=== PATIENT | female | born 1930 | race Caucasian/White ===

== ENCOUNTER 2019-02-24 12:41 | Emergency (ER) | payer OTHER ==
[2019-02-24] MEDS ORDERED: NA CHLORIDE 0.9% 1,000 ML ONE (13:13)
--- NOTE | 2019-02-24 13:20 | RAD REPORT ---
EXAM DESCRIPTION: CT - Head Brain Wo Cont - 02/24/2019 1:13 pm CLINICAL HISTORY: CONFUSED Headache, drowsiness COMPARISON: No comparisons TECHNIQUE: All CT scans are performed using dose optimization technique as appropriate and may inclu de automated exposure control or mA/KV adjustment according to patient size. FINDINGS: No intracranial hemorrhage, hydrocephalus or extra-axial fluid collection.Mild generalized brain atrophy is present with mild periventricular and deep white matter chronic microvascular ische radha changes.No areas of brain edema or evidence of midline shift. The paranasal sinuses and mastoids are clear. The calvarium is intact. IMPRESSION: No acute intracranial abnormality.
--- NOTE | 2019-02-24 13:35 | RAD REPORT ---
EXAM DESCRIPTION: US - Extremity Venous Uni Ltd - 02/24/2019 1:27 pm CLINICAL HISTORY: SWELLING Leg swelling and edema. COMPARISON: Extrem Venous W Compress Brandin dated 12/21/2016 FINDINGS: Left lower extremity venous system was interrogated with Doppler technique. Normal flow, c ompressibility and augmentation was noted. There is no DVT present. IMPRESSION: No evidence of left lower extremity deep venous thrombosis.
--- NOTE | 2019-02-24 13:43 | RAD REPORT ---
EXAM DESCRIPTION: RAD - Chest Single View - 02/24/2019 1:37 pm CLINICAL HISTORY: CONGESTION Chest pain. COMPARISON: Chest Pa And Lat (2 Views) dated 08/01/2018; CHEST PA AND LAT 2 VIEW dated 07/29/2010; SANJANA ST PA AND LAT 2 VIEW dated 08/05/2008 FINDINGS: Portable technique limits examination quality. Benign bilateral calcified granulomata seen. The lungs are otherwise clear. The heart is mildly enlar ged in size. Moderate hiatal hernia.Aortic atherosclerosis.
[2019-02-24 14:01] LABS: Absolute Lymphocytes (CBC) 1.5 K/uL (0.7-4.9); Basophils % 0.6 % (0-1.3); Lymphocytes % 17.1 % (15.3-44.8); MPV 9.2 fL (7.6-11.3); RBC Red Blood Cell Count 4.75 M/uL (3.86-4.86)
[2019-02-24 14:24] LABS: ALT/SGPT 23 U/L (12-78); AST/SGOT 21 U/L (15-37); Albumin 3.5 g/dL (3.4-5.0); Alkaline Phosphatase 90 U/L (45-117); BUN Blood Urea Nitrogen 18 mg/dL (7-18); Bicarbonate 26 mmol/L (21-32); Bilirubin Direct 0.2 mg/dL (0-0.2); Bilirubin Total 0.6 mg/dL (0.2-1.0); Glucose Level 110 mg/dL (74-106); Magnesium 2.1 mg/dL (1.8-2.4); NT PRO-BNP 437 pg/mL (<450); Potassium 3.9 mmol/L (3.5-5.1); Protein, Total 7.1 g/dL (6.4-8.2); Sodium Level 138 mmol/L (136-145); Troponin (Emerg Dept Use Only) < 0.02 ng/mL (0.0-0.045)
[2019-02-24] MEDS ORDERED: CEFTRIAXONE/SWI 1gm 1 GM/10 ML SYR ONE (15:50)
--- NOTE | 2019-02-24 15:54 | ER ---
Nurse's Notes [facility] Name: Pau Mims Age: 88 yrs Sex: Female : 1930 Arrival Date: 02/24/2019 Time: 12:44 Bed 7 Private MD: Jay Van C Diagnosis: Cystitis, unspecified without hematuria Presentation: 02/24 12:48 Presenting complaint: Sent by Dr. Van for leg swelling and generalized weakness x 1 hb week. Transition of care: patient was not received from another setting of care. Onset of symptoms was February 17, 2019. Risk Assessment: Do you want to hurt yourself or someone else? Patient reports no desire to harm self or others. Care prior to arrival: None. 12:48 Method Of Arrival: Ambulatory hb 12:48 Acuity: BRANDON 3 hb 13:00 Initial Sepsis Screen: Does the patient meet any 2 criteria? No. Patient's initial jl7 sepsis screen is negative. Does the patient have a suspected source of infection? No. Patient's initial sepsis screen is negative. Historical: - Allergies: 12:50 Sulfa (Sulfonamide Antibiotics); hb - Home Meds: 14:35 losartan 50 mg oral tab 1 tab 2 times per day [Active]; metoprolol tartrate 25 mg Oral jl7 tab 1 tab once daily [Active]; pantoprazole 40 mg oral TbEC 1 tab once daily [Active]; - PMHx: 14:35 Hypertension; jl7 - PSHx: 14:35 Hysterectomy; jl7 - Immunization history:: Adult Immunizations up to date. - Social history:: Smoking status: Patient/guardian denies using tobacco, Patient/guardian denies using alcohol, street drugs, The patient lives with family. - Ebola Screening: : No symptoms or risks identified at this time. - Family history:: not pertinent. Screenin:31 Abuse screen: Denies threats or abuse. Denies injuries from another. Nutritional jl7 screening: No deficits noted. Tuberculosis screening: No symptoms or risk factors identified. Fall Risk IV access (20 points). Total Frye Fall Scale indicates No Risk (0-24 pts). Assessment: 13:30 General: Appears in no apparent distress. uncomfortable, Behavior is calm, cooperative. jl7 Pain: Denies pain. Neuro: Level of Consciousness is awake, alert, obeys commands. Cardiovascular: Denies chest pain, Patient's skin is warm and dry. Edema is 3+ to left ankle, left foot, left toes, right ankle, right foot and right toes. Respiratory: Airway is patent Respiratory effort is even, unlabored, Respiratory pattern is regular, symmetrical, Denies shortness of breath. GI: No signs and/or symptoms were reported involving the gastrointestinal system. : No signs and/or symptoms were reported regarding the genitourinary system. Derm: Skin is pink, warm \T\ dry. 14:31 Reassessment: Patient appears in no apparent distress at this time. No changes from jl7 previously documented assessment. Patient and/or family updated on plan of care and expected duration. Pain level reassessed. Patient is alert, oriented x 3, equal unlabored respirations, skin warm/dry/pink. Vital Signs: 12:50 BP 205 / 95; Pulse 70; Resp 16; Temp 97.1; Pulse Ox 100% on R/A; Weight 62.14 kg; hb Height 5 ft. 1 in. (154.94 cm); Pain 0/10; 14:28 BP 156 / 94; Pulse 67; Resp 20 S; Pulse Ox 96% on R/A; Pain 0/10; jl7 15:10 BP 190 / 84; Pulse 62; Resp 16 S; Pulse Ox 96% on R/A; jl7 12:50 Body Mass Index 25.89 (62.14 kg, 154.94 cm) hb ED Course: 12:44 Patient arrived in ED. mr 12:45 Jay Van MD is Private Physician. mr 12:50 Triage completed. hb 12:50 Arm band placed on. hb 12:58 Emily Rios MD is Attending Physician. ma2 12:58 Anita Gusman RN is Primary Nurse. jl7 13:56 Initial lab(s) drawn, by ia, sent to lab. Inserted saline lock: 20 gauge in right ms antecubital area, using aseptic technique. Blood collected. 14:31 Patient has correct armband on for positive identification. Placed in gown. Bed in low jl7 position. Call light in reach. Side rails up X2. cardiac monitor technician on. Pulse ox on. NIBP on. Warm blanket given. 14:35 EKG done, by technical project lead. reviewed by Emily Rios MD. at1 15:09 Straight cath inserted, using sterile technique, 16 Fr. Specimen obtained. Returned jl7 cloudy urine. Patient tolerated well. 16:20 No provider procedures requiring assistance completed. IV discontinued, intact, jl7 bleeding controlled, No redness/swelling at site. Pressure dressing applied. Administered Medications: 15:50 Drug: Rocephin 1 grams Route: IV; Rate: calculated rate; Site: right antecubital; jl7 15:53 Follow up: Response: No adverse reaction; IV Status: Completed infusion jl7 15:58 Not Given (Patient Refused): NS 0.9% 1000 ml IV at 1 bolus Per protocol; 1000 mL bolus jl7 Outcome: 15:53 Discharge ordered by . ma2 16:20 Discharged to home ambulatory, with family. jl7 16:20 Condition: stable 16:20 Discharge instructions given to patient, family, Instructed on discharge instructions, follow up and referral plans. medication usage, Demonstrated understanding of instructions, follow-up care, medications, Prescriptions given X 1. 16:29 Patient left the ED. jl7 Addendum: 02/26/2019 08:06 Addendum: Culture Results: Positive urine culture. No further action required. Bacteria h b sensitive to prescribed antibiotic. Signatures: Natasha Cabrera mr Manuel, Melanie ms Khoi, Sparkle, adjunct philosophy faculty EKG Tat1 Ethel Pina, RN RN Anita Crespo RN RN jl7 Emily Rios MD MD ma2
--- NOTE | 2019-02-24 15:54 | EDPHYS ---
Physician Documentation [facility] Name: Pau Mims Age: 88 yrs Sex: Female : 1930 Arrival Date: 02/24/2019 Time: 12:44 Bed 7 Private MD: Jay House C ED Physician Emily Rios HPI: 02/24 15:50 This 88 yrs old Female presents to ER via Ambulatory with complaints of Leg ma2 Swelling. 15:50 Onset: The symptoms/episode began/occurred gradually, 1 week(s) ago. Severity of ma2 symptoms: At their worst the symptoms were mild in the emergency department the symptoms are unchanged. The patient has not experienced similar symptoms in the past. Historical: - Allergies: 12:50 Sulfa (Sulfonamide Antibiotics); hb - Home Meds: 14:35 losartan 50 mg oral tab 1 tab 2 times per day [Active]; metoprolol tartrate 25 mg Oral jl7 tab 1 tab once daily [Active]; pantoprazole 40 mg oral TbEC 1 tab once daily [Active]; - PMHx: 14:35 Hypertension; jl7 - PSHx: 14:35 Hysterectomy; jl7 - Immunization history:: Adult Immunizations up to date. - Social history:: Smoking status: Patient/guardian denies using tobacco, Patient/guardian denies using alcohol, street drugs, The patient lives with family. - Ebola Screening: : No symptoms or risks identified at this time. - Family history:: not pertinent. ROS: 15:50 Constitutional: Negative for fever, chills, and weight loss. ma2 15:50 All other systems are negative. Exam: 15:50 Constitutional: This is a well developed, well nourished patient who is awake, alert, ma2 and in no acute distress. Head/Face: Normocephalic, atraumatic. Eyes: Pupils equal round and reactive to light, extra-ocular motions intact. Lids and lashes normal. Conjunctiva and sclera are non-icteric and not injected. Cornea within normal limits. Periorbital areas with no swelling, redness, or edema. Chest/axilla: Normal chest wall appearance and motion. Nontender with no deformity. No lesions are appreciated. Cardiovascular: Regular rate and rhythm with a normal S1 and S2. No gallops, murmurs, or rubs. Normal PMI, no JVD. No pulse deficits. Skin: Warm, dry with normal turgor. Normal color with no rashes, no lesions, and no evidence of cellulitis. Neuro: Awake and alert, GCS 15, oriented to person, place, time, and situation. Cranial nerves II-XII grossly intact. Motor strength 5/5 in all extremities. Sensory grossly intact. Cerebellar exam normal. Normal gait. Vital Signs: 12:50 BP 205 / 95; Pulse 70; Resp 16; Temp 97.1; Pulse Ox 100% on R/A; Weight 62.14 kg; hb Height 5 ft. 1 in. (154.94 cm); Pain 0/10; 14:28 BP 156 / 94; Pulse 67; Resp 20 S; Pulse Ox 96% on R/A; Pain 0/10; jl7 15:10 BP 190 / 84; Pulse 62; Resp 16 S; Pulse Ox 96% on R/A; jl7 12:50 Body Mass Index 25.89 (62.14 kg, 154.94 cm) hb MDM: 12:58 Patient medically screened. ma2 15:50 Differential Diagnosis dvt, SDH, uti. Data reviewed: vital signs, nurses notes. ma2 Counseling: I had a detailed discussion with the patient and/or guardian regarding: the historical points, exam findings, and any diagnostic results supporting the discharge/admit diagnosis, the presence of at least one elevated blood pressure reading (>120/80) during this emergency department visit, the need for outpatient follow up. ED course: discussed with dr. ohuse who recommends offering both options to patient either observation or outpatient management, patient want to go home. .. 02/24 13:01 Order name: Basic Metabolic Panel [facility] 02/24 13:01 Order name: CBC with Diff [facility] 02/24 13:01 Order name: LFT's [facility] 02/24 13:01 Order name: Magnesium [facility] 02/24 13:01 Order name: NT PRO-BNP [facility] 02/24 13:01 Order name: PT-INR [facility] 02/24 13:01 Order name: Troponin (emerg Dept Use Only) [facility] 02/24 14:03 Order name: CBC with Automated Diff; Complete Time: 14:09 EDMS 02/24 14:04 Order name: Protime (+INR); Complete Time: 14:09 EDMS 02/24 14:25 Order name: Basic Metabolic Panel; Complete Time: 14:29 EDMS 02/24 14:25 Order name: Liver (Hepatic) Function; Complete Time: 14:29 EDMS 02/24 14:25 Order name: Troponin (Emerg Dept Use Only); Complete Time: 14:29 EDMS 02/24 14:25 Order name: NT PRO-BNP; Complete Time: 14:29 EDMS 02/24 14:25 Order name: Magnesium; Complete Time: 14:29 EDMS 02/24 13:01 Order name: XRAY Chest (1 view) [facility] 02/24 13:01 Order name: EKG; Complete Time: 13:03 [facility] 02/24 13:01 Order name: Cardiac monitoring; Complete Time: 13:55 ar2 02/24 13:01 Order name: EKG - Nurse/Tech; Complete Time: 13:56 [facility] 02/24 13:01 Order name: IV Saline Lock; Complete Time: 13:56 [facility] 02/24 13:01 Order name: Labs collected and sent; Complete Time: 13:56 [facility] 02/24 13:01 Order name: O2 Per Protocol; Complete Time: 13:55 ar2 02/24 13:01 Order name: CT Head Brain wo Cont [facility] 02/24 13:01 Order name: Extremity Venous Uni Ltd US [facility] 02/24 13:26 Order name: CT; Complete Time: 14:09 [facility] 02/24 13:43 Order name: US; Complete Time: 14:09 [facility] 02/24 13:48 Order name: RAD; Complete Time: 14:09 [facility] 02/24 15:12 Order name: Urine Culture [facility] 02/24 15:13 Order name: Urine Dipstick--Ancillary (enter results) bd 02/24 13:01 Order name: O2 Sat Monitoring; Complete Time: 13:55 ar2 02/24 13:01 Order name: Urine Dipstick-Ancillary (obtain specimen); Complete Time: 15:58 ma2 Administered Medications: 15:50 Drug: Rocephin 1 grams Route: IV; Rate: calculated rate; Site: right antecubital; jl7 15:53 Follow up: Response: No adverse reaction; IV Status: Completed infusion [facility] 15:58 Not Given (Patient Refused): NS 0.9% 1000 ml IV at 1 bolus Per protocol; 1000 mL bolus jl7 Disposition: 02/24/19 15:53 Discharged to Home. Impression: Cystitis, unspecified without hematuria. - Condition is Stable. - Discharge Instructions: Urinary Tract Infection, Adult. - Prescriptions for Cipro 500 mg Oral Tablet - take 1 tablet by ORAL route every 12 hours for 7 days; 14 tablet. - Medication Reconciliation Form, Thank You Letter, Antibiotic Education, Prescription Opioid Use form. - Follow up: Private Physician; When: Tomorrow; Reason: Continuance of care. Signatures: Dispatcher [employer] EDMS Ethel Pina RN RN Anita Gusman RN RN jl7 Emily Rios MD MD ma2 Corrections: (The following items were deleted from the chart) 16:29 15:53 02/24/2019 15:53 Discharged to Home. Impression: Cystitis, unspecified without jl7 hematuria. Condition is Stable. Forms are Medication Reconciliation Form, Thank You Letter, Antibiotic Education, Prescription Opioid Use. Follow up: Private Physician; When: Tomorrow; Reason: Continuance of care. ma2
--- NOTE | 2019-02-24 16:01 | EKG ---
Test Date: 2019-02-24 Test Time: 14:29:54 Document Design Specialist: DONTAE MEASUREMENT RESULTS: Intervals: Rate: 62 MS: 186 QRSD: 64 QT: 418 QTc: 424 [place]: P: 94 MS: 186 QRS: -31 T: 32 INTERPRETIVE STATEMENTS: Sinus rhythm with marked sinus arrhythmia Left axis deviation Abnormal ECG Compared to ECG 10/20/2010 11:40:16 Left-axis deviation now present Electronically Signed On 02-24-19 16:00:33 LAUNDRY ROUTEMAN by Arian Matute
[2019-02-24 18:03] VITALS: TEMP 97.1
[2019-02-24 18:04] VITALS: O2SAT 96
[2019-02-24 18:09] VITALS: BP 190/84
[2019-02-24 19:17] LABS: Urine Blood TRACE (NEG); Urine Glucose NEGATIVE (NEG); Urine Protein NEGATIVE (NEG)
== END 2019-02-24 16:29 | disposition home or self-care (01) ==
LOC: ER 12:41
DX: N30.90 Cystitis, unspecified without hematuria (principal); I10 Essential (primary) hypertension; Z88.2 Allergy status to sulfonamides
CPT/HCPCS: 93005; 87088; 85025; 87086; 80048; 36415; 83735; 85610; 80076; 87077; 87186; 81003; 84484; 83880; 70450; 71045; 93971; 51702; 96374; 99284; J0696; J7030

== ENCOUNTER 2019-05-19 11:37 | Emergency (ER) | payer OTHER ==
--- NOTE | 2019-05-19 13:05 | RAD REPORT ---
EXAM DESCRIPTION: RAD - Chest Single View - 05/19/2019 1:00 pm CLINICAL HISTORY: ABDOMINAL DISTENTION Chest pain. COMPARISON: Chest Single View dated 02/24/2019; Chest Pa And Lat (2 Views) dated 08/01/2018; CHEST PA AND LAT 2 VIEW dated 07/29/2010; CHEST PA AND LAT 2 VIEW dated 08/05/2008 FINDINGS: Portable technique limits examination quality. Small calcified granuloma are present in both lungs, benign. Large hiatal hernia is seen. The heart i s mildly enlarged. No displaced fractures.Aortic atherosclerosis.
[2019-05-19] MEDS ORDERED: NA CHLORIDE 0.9% 1,000 ML ONE (13:20)
[2019-05-19] MEDS ORDERED: ONDANSETRON 4 MG/2 ML VIAL ONE (13:20)
[2019-05-19 13:38] LABS: Absolute Lymphocytes (CBC) 1.2 K/uL (0.7-4.9); Basophils % 0.4 % (0-1.3); Hematocrit 38.7 % (36.0-45.0); Lymphocytes % 9.4 % (15.3-44.8); RBC Red Blood Cell Count 4.41 M/uL (3.86-4.86)
[2019-05-19 13:41] LABS: ALT/SGPT 16 U/L (12-78); AST/SGOT 16 U/L (15-37); Albumin 2.9 g/dL (3.4-5.0); Alkaline Phosphatase 78 U/L (45-117); BUN Blood Urea Nitrogen 24 mg/dL (7-18); Bicarbonate 27 mmol/L (21-32); Bilirubin Direct 0.1 mg/dL (0-0.2); Bilirubin Total 0.4 mg/dL (0.2-1.0); Glucose Level 94 mg/dL (74-106); Lipase 114 U/L (73-393); Magnesium 2.6 mg/dL (1.8-2.4); NT PRO-BNP 344 pg/mL (<450); Protein, Total 7.2 g/dL (6.4-8.2); Sodium Level 137 mmol/L (136-145); Troponin (Emerg Dept Use Only) < 0.02 ng/mL (0.0-0.045)
--- NOTE | 2019-05-19 14:34 | RAD REPORT ---
EXAM DESCRIPTION: CTAbdomen Pelvis W Contrast - 05/19/2019 2:12 pm CLINICAL HISTORY: Abdominal pain. ABD PAIN COMPARISON: No comparisons TECHNIQUE: Biphasic CT imaging of the abdomen and pelvis was performed with 100 ml non-ionic IV cont rast. All CT scans are performed using dose optimization technique as appropriate and may include automated exposure control or mA/KV adjustment according to patient size. FINDINGS: The lung bases are clear.Large hiatal hernia is seen. The liver, spleen, pancreas, adrenal glands are within normal limits. Benign bilateral renal cysts ar e present. Cholelithiasis. No bowel obstruction, free air, free fluid or abscess. Significant rectosigmoid fecal retention. Sigm oid diverticulosis coli without diverticulitis. The appendix is not identified as a discrete structur e, however, no secondary findings of appendicitis are identified. No evidence of significant lymphad enopathy. No suspicious bony findings. IMPRESSION: Moderate rectosigmoid fecal retention. Large hiatal hernia. Cholelithiasis.
--- NOTE | 2019-05-19 15:10 | ER ---
Nurse's Notes [facility] Name: Pau Mims Age: 88 yrs Sex: Female : 1930 Arrival Date: 05/19/2019 Time: 11:39 Bed 16 Private MD: Jay Van C Diagnosis: Constipation-fecal impaction;Abdominal tenderness;Congenital hiatus hernia Presentation: 05/18 11:45 Chief complaint: Patient states: Family states that patient was constipated and ss possibly impacted, but took an oral medication to clean her colon out, which resulted in a large BM yesterday, but they believe she did not pass the hard ball of stool as patient is still having some discomfort. Coronavirus screen: The patient has NOT traveled to a country currently being monitored by the CDC within the last 14 days. Proceed with normal triage procedures. Ebola Screen: Patient denies exposure to infectious person. Patient denies travel to an Ebola-affected area in the 21 days before illness onset. Initial Sepsis Screen: Does the patient meet any 2 criteria? No. Patient's initial sepsis screen is negative. Does the patient have a suspected source of infection? No. Patient's initial sepsis screen is negative. Risk Assessment: Do you want to hurt yourself or someone else? Patient reports no desire to harm self or others. 11:45 Method Of Arrival: Ambulatory ss 11:45 Acuity: BRANDON 3 ss Historical: - Allergies: 11:49 Sulfa (Sulfonamide Antibiotics); ss - PMHx: 11:49 Hypertension; ss - PSHx: 11:49 Hysterectomy; ss - Immunization history:: Adult Immunizations up to date. - Social history:: Smoking status: Patient denies any tobacco usage or history of. - Family history:: not pertinent. Screenin:25 Abuse screen: Denies threats or abuse. Denies injuries from another. Nutritional ph screening: No deficits noted. Tuberculosis screening: No symptoms or risk factors identified. 13:00 Fall Risk None identified. ph Assessment: 12:30 General: Appears in no apparent distress. comfortable, slender, well groomed, Behavior ph is calm, cooperative, appropriate for age, Denies fever, chills. Pain: Complains of pain in buttocks. Neuro: Level of Consciousness is awake, alert, obeys commands, Oriented to person, place, time, situation. Cardiovascular: Capillary refill < 3 seconds in bilateral fingers Patient's skin is warm and dry. Respiratory: No deficits noted. GI: Abdomen is round non-distended, Bowel sounds present X 4 quads. Abd is soft and non tender X 4 quads. Reports constipation. Derm: No deficits noted. Musculoskeletal: No deficits noted. 13:30 Reassessment: Patient appears in no apparent distress at this time. Patient and/or ph family updated on plan of care and expected duration. Pain level reassessed. Patient is alert, oriented x 3, equal unlabored respirations, skin warm/dry/pink. 14:30 Reassessment: Patient appears in no apparent distress at this time. Patient and/or ph family updated on plan of care and expected duration. Pain level reassessed. Patient is alert, oriented x 3, equal unlabored respirations, skin warm/dry/pink. Vital Signs: 11:45 BP 113 / 56; Pulse 90; Resp 16; Temp 97.4(O); Pulse Ox 96% on R/A; Weight 57.61 kg; ss Height 5 ft. 1 in. (154.94 cm); Pain 5/10; 13:00 BP 118 / 62; Pulse 87; Resp 18; Pulse Ox 98% on R/A; ph 14:00 BP 110 / 60; Pulse 86; Resp 18; Pulse Ox 98% on R/A; ph 15:00 BP 112 / 58; Pulse 79; Resp 18; Temp 97.9; Pulse Ox 97% on R/A; ph 11:45 Body Mass Index 24.00 (57.61 kg, 154.94 cm) ED Course: 11:39 Patient arrived in ED. rg4 11:39 Jay Van MD is Private Physician. rg4 11:48 Triage completed. ss 11:49 Arm band placed on right wrist. ss 11:50 Fransisco Coates MD is Attending Physician. [facility] 11:53 Carolyn Guardado, JACOBY is Primary Nurse. ph 13:00 Patient has correct armband on for positive identification. Placed in gown. Bed in low ph position. Call light in reach. Side rails up X 1. Pulse ox on. NIBP on. Door closed. Noise minimized. Warm blanket given. 13:05 XRAY Chest (1 view) In Process Unspecified. EDMS 13:15 EKG done, by ED staff, reviewed by Fransisco Coates MD. [facility] 15:09 Jay Van MD is Referral Physician. [facility] 15:09 Veronica Clay MD is Referral Physician. mary 15:15 No provider procedures requiring assistance completed. IV discontinued, intact, ph bleeding controlled, No redness/swelling at site. Pressure dressing applied. Administered Medications: 13:30 Drug: NS 0.9% 1000 ml Route: IV; Rate: 1 bolus; Site: left antecubital; ph 15:00 Follow up: Response: No adverse reaction; IV Status: Completed infusion ph 13:35 Drug: Zofran (Ondansetron) 4 mg Route: IVP; Site: left antecubital; ph 14:00 Follow up: Response: No adverse reaction ph 14:40 Drug: Cipro 400 mg Volume: 200 ml; Route: IVPB; Infused Over: 60 mins; Site: left ph antecubital; 15:40 Follow up: Response: No adverse reaction; IV Status: Completed infusion ph 15:18 Drug: Flagyl 500 mg Route: PO; ph 15:30 Follow up: Response: No adverse reaction ph 15:19 Drug: Dulcolax Suppository 10 mg Route: FL; ph 15:30 Follow up: Response: No adverse reaction ph 15:20 Drug: Lactulose 30 grams Volume: 45 ml; Route: PO; ph 15:40 Follow up: Response: No adverse reaction ph 15:21 Drug: Lactulose 30 grams Volume: 45 ml; Route: PO; ph 15:30 Follow up: Response: No adverse reaction ph Outcome: 15:10 Discharge ordered by . [facility] 15:52 Patient left the ED. ph 15:52 Discharged to home ambulatory, with family. ph 15:52 Condition: good 15:52 Discharge instructions given to patient, family, Instructed on discharge instructions, follow up and referral plans. medication usage, Demonstrated understanding of instructions, follow-up care, medications, Prescriptions given X 5 Signatures: Dispatcher [employer] EDFransisco Garcia MD MD cha Smirch, Shelby, RN RN Carolyn Guardado RN RN Adela Ortiz4 Rosette Shaffer 3
--- NOTE | 2019-05-19 15:11 | EDPHYS ---
Physician Documentation [facility] Name: Pau Mims Age: 88 yrs Sex: Female : 1930 Arrival Date: 05/19/2019 Time: 11:39 Bed 16 Private MD: Jay Van C ED Physician Fransisco Coates HPI: 05/18 12:52 This 88 yrs old Female presents to ER via Ambulatory with complaints of mary Abdominal Pain. 12:52 The patient presents to the emergency department with pain in the rectal area. Onset: mary The symptoms/episode began/occurred 5 day(s) ago. Context: the patient has no known special context relating to the rectal area complaint(s). Modifying factors: The symptoms are alleviated by nothing, The symptoms are aggravated by nothing. Associate signs and symptoms: The patient has no apparent associated signs or symptoms. The patient has not experienced similar symptoms in the past. Historical: - Allergies: 11:49 Sulfa (Sulfonamide Antibiotics); ss - PMHx: 11:49 Hypertension; ss - PSHx: 11:49 Hysterectomy; ss - Immunization history:: Adult Immunizations up to date. - Social history:: Smoking status: Patient denies any tobacco usage or history of. - Family history:: not pertinent. ROS: 12:52 Constitutional: Negative for fever, chills, and weight loss, Eyes: Negative for injury, mary pain, redness, and discharge, ENT: Negative for injury, pain, and discharge, Neck: Negative for injury, pain, and swelling, Cardiovascular: Negative for chest pain, palpitations, and edema, Respiratory: Negative for shortness of breath, cough, wheezing, and pleuritic chest pain, Back: Negative for injury and pain, : Negative for injury, bleeding, discharge, and swelling, MS/Extremity: Negative for injury and deformity, Skin: Negative for injury, rash, and discoloration, Neuro: Negative for headache, weakness, numbness, tingling, and seizure, Psych: Negative for depression, anxiety, suicide ideation, homicidal ideation, and hallucinations, Allergy/Immunology: Negative for hives, rash, and allergies, Endocrine: Negative for neck swelling, polydipsia, polyuria, polyphagia, and marked weight changes, Hematologic/Lymphatic: Negative for swollen nodes, abnormal bleeding, and unusual bruising. 12:52 Abdomen/GI: Positive for abdominal pain, rectal bleeding. Exam: 12:52 Constitutional: This is a well developed, well nourished patient who is awake, alert, mary and in no acute distress. Head/Face: Normocephalic, atraumatic. Eyes: Pupils equal round and reactive to light, extra-ocular motions intact. Lids and lashes normal. Conjunctiva and sclera are non-icteric and not injected. Cornea within normal limits. Periorbital areas with no swelling, redness, or edema. ENT: Nares patent. No nasal discharge, no septal abnormalities noted. Tympanic membranes are normal and external auditory canals are clear. Oropharynx with no redness, swelling, or masses, exudates, or evidence of obstruction, uvula midline. Mucous membranes moist. Neck: Trachea midline, no thyromegaly or masses palpated, and no cervical lymphadenopathy. Supple, full range of motion without nuchal rigidity, or vertebral point tenderness. No Meningismus. Chest/axilla: Normal chest wall appearance and motion. Nontender with no deformity. No lesions are appreciated. Cardiovascular: Regular rate and rhythm with a normal S1 and S2. No gallops, murmurs, or rubs. Normal PMI, no JVD. No pulse deficits. Respiratory: Lungs have equal breath sounds bilaterally, clear to auscultation and percussion. No rales, rhonchi or wheezes noted. No increased work of breathing, no retractions or nasal flaring. Abdomen/GI: Soft, non-tender, with normal bowel sounds. No distension or tympany. No guarding or rebound. No evidence of tenderness throughout. Back: No spinal tenderness. No costovertebral tenderness. Full range of motion. Skin: Warm, dry with normal turgor. Normal color with no rashes, no lesions, and no evidence of cellulitis. MS/ Extremity: Pulses equal, no cyanosis. Neurovascular intact. Full, normal range of motion. Neuro: Awake and alert, GCS 15, oriented to person, place, time, and situation. Cranial nerves II-XII grossly intact. Motor strength 5/5 in all extremities. Sensory grossly intact. Cerebellar exam normal. Normal gait. Psych: Awake, alert, with orientation to person, place and time. Behavior, mood, and affect are within normal limits. 12:52 Abdomen/GI: Inspection: abdomen appears normal, Bowel sounds: normal, Palpation: abdomen is soft and non-tender, Rectal exam: rectal tone normal, Stool: guaiac negative, hemorrhoid(s), are not appreciated, mass, is not appreciated, swelling, is not appreciated, tenderness, is not appreciated, fecal impaction, is not appreciated, the exam is chaperoned by a family member. Vital Signs: 11:45 BP 113 / 56; Pulse 90; Resp 16; Temp 97.4(O); Pulse Ox 96% on R/A; Weight 57.61 kg; ss Height 5 ft. 1 in. (154.94 cm); Pain 5/10; 13:00 BP 118 / 62; Pulse 87; Resp 18; Pulse Ox 98% on R/A; ph 14:00 BP 110 / 60; Pulse 86; Resp 18; Pulse Ox 98% on R/A; ph 15:00 BP 112 / 58; Pulse 79; Resp 18; Temp 97.9; Pulse Ox 97% on R/A; ph 11:45 Body Mass Index 24.00 (57.61 kg, 154.94 cm) ss MDM: 11:50 [facility]. [facility] 12:54 Data reviewed: vital signs, nurses notes, lab test result(s), EKG, radiologic studies, [facility] scan, plain films. 05/18 12:04 Order name: Basic Metabolic Panel [facility] 05/18 12:04 Order name: CBC with Diff; Complete Time: 14:28 [facility] 05/18 12:04 Order name: LFT's [facility] 05/18 12:04 Order name: Magnesium [facility] 05/18 12:04 Order name: NT PRO-BNP; Complete Time: 14:28 [facility] 05/18 12:04 Order name: PT-INR; Complete Time: 14:28 [facility] 05/18 12:04 Order name: Troponin (emerg Dept Use Only); Complete Time: 14:28 [facility] 05/18 12:04 Order name: XRAY Chest (1 view); Complete Time: 13:36 [facility] 05/18 12:04 Order name: Lipase; Complete Time: 14:28 [facility] 05/18 12:04 Order name: Urine Culture [facility] 05/18 12:05 Order name: Basic Metabolic Panel; Complete Time: 14:28 [facility] 05/18 12:05 Order name: Liver (Hepatic) Function; Complete Time: 14:28 [facility] 05/18 12:05 Order name: Magnesium; Complete Time: 14:28 [facility] 05/18 14:20 Order name: Urine Dipstick--Ancillary (enter results) 05/18 12:04 Order name: EKG; Complete Time: 12:05 [facility] 05/18 12:04 Order name: Cardiac monitoring; Complete Time: 13:05 [facility] 05/18 12:04 Order name: EKG - Nurse/Tech; Complete Time: 13:05 [facility] 05/18 12:04 Order name: IV Saline Lock; Complete Time: 13:05 [facility] 05/18 12:04 Order name: Labs collected and sent; Complete Time: 13:05 [facility] 05/18 12:04 Order name: O2 Per Protocol; Complete Time: 13:05 [facility] 05/18 12:04 Order name: O2 Sat Monitoring; Complete Time: 13:05 [facility] 05/18 12:04 Order name: CT Abd/Pelvis - PO and IV Contrast [facility] 05/18 15:31 Order name: CT EDMT 05/18 12:04 Order name: Urine Dipstick-Ancillary (obtain specimen); Complete Time: 13:39 [facility] Administered Medications: 13:30 Drug: NS 0.9% 1000 ml Route: IV; Rate: 1 bolus; Site: left antecubital; ph 15:00 Follow up: Response: No adverse reaction; IV Status: Completed infusion ph 13:35 Drug: Zofran (Ondansetron) 4 mg Route: IVP; Site: left antecubital; ph 14:00 Follow up: Response: No adverse reaction ph 14:40 Drug: Cipro 400 mg Volume: 200 ml; Route: IVPB; Infused Over: 60 mins; Site: left ph antecubital; 15:40 Follow up: Response: No adverse reaction; IV Status: Completed infusion ph 15:18 Drug: Flagyl 500 mg Route: PO; ph 15:30 Follow up: Response: No adverse reaction ph 15:19 Drug: Dulcolax Suppository 10 mg Route: WV; ph 15:30 Follow up: Response: No adverse reaction ph 15:20 Drug: Lactulose 30 grams Volume: 45 ml; Route: PO; ph 15:40 Follow up: Response: No adverse reaction ph 15:21 Drug: Lactulose 30 grams Volume: 45 ml; Route: PO; ph 15:30 Follow up: Response: No adverse reaction ph Disposition: 05/19/19 15:10 Discharged to Home. Impression: Constipation - fecal impaction, Abdominal tenderness, Congenital hiatus hernia. - Condition is Stable. - Discharge Instructions: Abdominal Pain, Adult, Constipation, Adult, Hiatal Hernia, Constipation, Adult, [id number], Abdominal Pain, Adult, [id number]. - Prescriptions for Flagyl 500 mg Oral Tablet - take 1 tablet by ORAL route every 12 hours for 7 days; 14 tablet. Cipro 500 mg Oral Tablet - take 1 tablet by ORAL route every 12 hours for 7 days; 14 tablet. Zofran 4 mg Oral Tablet - take 1 tablet by ORAL route every 12 hours As needed; 20 tablet. Dulcolax 10 mg Rectal Suppository - insert 1 suppository by RECTAL route every 12 hours As needed; 10 suppository. lactulose 10 gram/15 mL Oral solution - take 30 milliliter by ORAL route 2 times per day; 200 milliliter. - Medication Reconciliation Form, Thank You Letter, Antibiotic Education, Prescription Opioid Use form. - Follow up: Jay Van; When: 2 - 3 days; Reason: Recheck today's complaints, Continuance of care, Re-evaluation by your physician. Follow up: Veronica Clay; When: 2 - 3 days; Reason: Recheck today's complaints, Re-evaluation by your physician. - Problem is new. - Symptoms have improved. Signatures: Dispatcher [employer] EDMS Fransisco Coates MD MD cha Smirch, Shelby, RN RN ss Carolyn Guardado RN RN ph Corrections: (The following items were deleted from the chart) 15:52 15:10 05/19/2019 15:10 Discharged to Home. Impression: Constipation - fecal impaction; ph Abdominal tenderness; Congenital hiatus hernia. Condition is Stable. Discharge Instructions: Abdominal Pain, Adult, Constipation, Adult, Hiatal Hernia, Constipation, Adult, [id number], Abdominal Pain, Adult, [id number]. Prescriptions for Pepcid 20 mg Oral Tablet - take 1 tablet by ORAL route every 12 hours for 10 days; 20 tablet, Miralax 17 gram/dose Oral - take 1 packet by ORAL route once daily dilute powder in 8 ounces of water or juice; 14 packet, Flagyl 500 mg Oral Tablet - take 1 tablet by ORAL route every 12 hours for 7 days; 14 tablet, Cipro 500 mg Oral Tablet - take 1 tablet by ORAL route every 12 hours for 7 days; 14 tablet. and Forms are Medication Reconciliation Form, Thank You Letter, Antibiotic Education, Prescription Opioid Use. Follow up: Jay Van; When: 2 - 3 days; Reason: Recheck today's complaints, Continuance of care, Re-evaluation by your physician. Follow up: Veronica Clay; When: 2 - 3 days; Reason: Recheck today's complaints, Re-evaluation by your physician. Problem is new. Symptoms have improved. mary
[2019-05-19] MEDS ORDERED: CIPROFLOXACIN HCL 500 MG TAB ONE (15:37)
[2019-05-19] MEDS ORDERED: metroNIDAZOLE 500 MG TABLET ONE (15:37)
[2019-05-19] MEDS ORDERED: LACTULOSE 20 GM/30 ML UCUP ONE (15:38)
[2019-05-19] MEDS ORDERED: BISACODYL 10 MG RECTAL SUPP ONE (15:38)
[2019-05-19 15:55] LABS: Urine Blood NEGATIVE (NEG); Urine Glucose NEGATIVE (NEG); Urine Protein NEGATIVE (NEG); Urine Specific Gravity 1.015 (1.005-1.030); Urine pH 6.5 (5.0-7.0)
[2019-05-19 15:59] VITALS: BP 113/56; TEMP 97.4; O2SAT 96
--- NOTE | 2019-05-20 08:54 | EKG ---
Test Date: 2019-05-19 Test Time: 12:13:47 [employer] Data [employer]: GULSHAN MEASUREMENT RESULTS: Intervals: Rate: 85 TX: 178 QRSD: 54 QT: 370 QTc: 440 [place]: P: 64 TX: 178 QRS: -56 T: 65 INTERPRETIVE STATEMENTS: Sinus rhythm with premature supraventricular complexes Left axis deviation Abnormal ECG Compared to ECG 02/24/2019 14:29:54 Atrial premature complex(es) now present Sinus arrhythmia no longer present Electronically Signed On 05-20-19 08:53:00 CDT by Milton Gaona
== END 2019-05-19 15:52 | disposition home or self-care (01) ==
LOC: ER 11:37
DX: K59.00 Constipation, unspecified (principal); Q40.1 Congenital hiatus hernia; R10.819 Abdominal tenderness, unspecified site; Z88.2 Allergy status to sulfonamides
CPT/HCPCS: 96365; 96361; 93005; 87088; 85025; 87086; 80048; 36415; 83735; 85610; 80076; 81003; 84484; 83690; 83880; 74177; 71045; 96375; 99284; Q9967; J7030; J2405